=== PATIENT | male | born 2005 | race Caucasian/White ===

== ENCOUNTER 2025-04-05 22:07 | Emergency (ER) | payer BC ==
[2025-04-05] MEDS ORDERED: Ibuprofen 200 MG TAB ONE (22:43)
== END 2025-04-05 23:39 | disposition home or self-care (01) ==
LOC: CSHERS 22:07
DX: S09.90XA Unspecified injury of head, initial encounter (principal); S13.9XXA Sprain of joints and ligaments of unspecified parts of neck, initial encounter; V43.52XA Car driver injured in collision with other type car in traffic accident, initial encounter
CPT/HCPCS: 70450; 71250; 72125; 74177